=== PATIENT | female | born 1990 | race Caucasian/White ===

== ENCOUNTER 2023-08-15 19:30 | Emergency (ER) | payer OTHER ==
[~2023-08-15] VITALS: Ht 165.1 cm; Wt 81.6 kg
[2023-08-15 20:15] LABS: CLARITY,URINE CLOUDY (CLEAR); COLOR,URINE RED (YELLOW)
[2023-08-15 20:16] LABS: PREGNANCY TEST, URINE POSITIVE (NEGATIVE)
[2023-08-15 20:22] LABS: BACTERIA,URINE MANY /HPF; BILIRUBIN,URINE NEGATIVE (NEGATIVE); EPITHELIAL CELLS,URINE FEW /LPF; GLUCOSE, URINE NEGATIVE (NEGATIVE); KETONES,URINE NEGATIVE (NEGATIVE); LEUKOCYTE ESTERASE ,URINE NEGATIVE (NEGATIVE); NITRITE,URINE NEGATIVE (NEGATIVE); PH,URINE 5.5 (5 - 7); PROTEIN,URINE DIPSTICK 2+ (NEGATIVE); RBC,URINE >50 /HPF (0-5); URINE UROBILINOGEN 0.2 mg/dL (0.2 - 1)
[2023-08-15 20:23] LABS: MUCUS,URINE MANY (RARE)
[2023-08-15 22:09] VITALS: PULSE 110; RESP 16; TEMP 98.5; O2SAT 100
== END 2023-08-15 22:03 | disposition home or self-care (01) ==
LOC: ER 19:46
DX: O03.9 Complete or unspecified spontaneous abortion without complication (principal)
CPT/HCPCS: 76801; 81001; 81025; 99283

== ENCOUNTER 2024-11-06 06:37 | Emergency (ER) | payer OTHER ==
[~2024-11-06] VITALS: Ht 165.1 cm; Wt 81.6 kg
[2024-11-06 06:43] VITALS: TEMP 98.1
[2024-11-06 07:04] LABS: BASOPHILS % 0.4 % (0.0-1.0); EOSINOPHILS % 0.0 % (0.0-6.0); LYMPHOCYTES % 9.8 % (18.0-39.1); MONOCYTES % 3.4 % (4.4-11.3); NEUTROPHILS % 85.9 % (38.7-80.0); RED CELL DISTRIBUTION WIDTH 12.2 % (11.7-14.4)
[2024-11-06] MEDS: Morphine 4mg INJECTION 4 MG/ML INJ IV ONE (07:11)
[2024-11-06] MEDS: ONDANSETRON HCL INJ 2MG/ML 2ML 2 MG/ML VIAL IV STA (07:11)
[2024-11-06] MEDS: SODIUM CHLORIDE 0.9% 1000ML 1,000 ML IV ONE (07:11)
[2024-11-06 07:30] VITALS: PULSE 67; RESP 16; O2SAT 97
[2024-11-06 07:50] LABS: EST GLOMERULAR FILTRATION RATE 116 ML/MIN (>=60)
[2024-11-06] MEDS ORDERED: IOPAMIDOL 370 MG/ML 100 ML INFUS..BTL INJ ONE ×2 (08:03→08:49)
[2024-11-06 09:37] LABS: LEUKOCYTE ESTERASE ,URINE NEGATIVE (NEGATIVE); PROTEIN,URINE DIPSTICK NEGATIVE (NEGATIVE); URINE UROBILINOGEN 0.2 mg/dL (0.2 - 1)
[2024-11-06 09:51] LABS: EPITHELIAL CELLS,URINE RARE /LPF; WBC,URINE (MAN) 0-5 /HPF (0-5)
[2024-11-06] MEDS ORDERED: ONDANSETRON ODT4 MG PO (10:21)
== END 2024-11-06 10:50 | disposition home or self-care (01) ==
LOC: ER 06:41
DX: R10.11 Right upper quadrant pain (principal); K80.20 Calculus of gallbladder without cholecystitis without obstruction; Z98.84 Bariatric surgery status
CPT/HCPCS: 36415; 74177; 76705; 80053; 81001; 83690; 84702; 85025; 99284; J2270; J2405; J7030; Q9967